=== PATIENT | female | born 1995 | race Two or more races ===

== ENCOUNTER 2022-11-17 14:40 | Emergency (ER) | payer BC ==
[~2022-11-17] VITALS: Ht 167.6 cm; Wt 81.6 kg
[2022-11-17] MEDS ORDERED: IBUP800T26 PO (15:41)
[2022-11-17 15:51] VITALS: BP 144/83
== END 2022-11-17 15:53 | disposition home or self-care (01) ==
LOC: ER 14:40
DX: M94.0 Chondrocostal junction syndrome [Tietze] (principal); J45.909 Unspecified asthma, uncomplicated; Z88.0 Allergy status to penicillin; Z88.8 Allergy status to other drugs, medicaments and biological substances
CPT/HCPCS: 71111